=== PATIENT | female | born 1965 | race Caucasian/White ===

== ENCOUNTER 2025-04-02 17:22 | Emergency (ER) | payer OTHER, SELFPAY ==
[2025-04-02 17:26] VITALS: BP 122/76
[2025-04-02 17:58] LABS: Hematocrit 41.0 % (37.0-47.0); Hemoglobin 13.8 g/dL (12.0-16.0); Mean Corp Hgb Conc. 33.7 g/dL (33.0-37.0); Mean Corpuscular Volume 89.5 fL (81.0-99.0); Nucleated Red Blood Cells % 0 %; Platelet Count 312 10^3/uL (130-400); Red Cell Dist. Width 12.8 % (11.5-14.5)
[2025-04-02 18:08] LABS: ALT (SGPT) 54 U/L (0-35); AST (SGOT) 48 U/L (14-36); Albumin 4.6 g/dl (3.5-5.0); Alkaline Phosphatase 68 U/L (38-126); Blood Urea Nitrogen 16 mg/dl (7-17); Calcium 9.6 mg/dl (8.4-10.2); Carbon Dioxide 29 mmol/L (22-30); Chloride 99 mmol/L (98-107); Glucose 92 mg/dl (70-99); Potassium 4.5 mmol/L (3.5-5.1); Sodium 132 mmol/L (135-145); Total Protein 7.3 g/dl (6.3-8.2); eGFR > 60.00
[2025-04-02 18:20] LABS: Troponin I < 0.012 ng/ml
[2025-04-02 19:45] VITALS: BP 114/65
[2025-04-02 21:12] VITALS: BMI 26.6
[2025-04-02 21:22] VITALS: BP 121/73
[2025-04-02 22:00] VITALS: BP 104/69
[2025-04-02 23:00] VITALS: BP 102/70
--- NOTE | 2025-04-02 23:09 | ED.GENMED ---
History of Present Illness
General
Chief Complaint: Breathing Problem
Time Seen by Provider: 04/02/25 21:54
History of Present Illness
History of Present Illness:
59-year-old female with history of metastatic breast cancer presenting to the emergency department for shortness of breath. Patient has been following with [facility] for her cancer, started on Enhertu infusions with first infusion 3 weeks
ago. Last night particularly when patient was lying flat, had chest discomfort and shortness of breath. She called her oncologist today who told her to come to the hospital for evaluation, stating that one of the side effects of the medication is
pulmonary fibrosis. Patient denies any known cardiac history. She denies fever or cough. She denies any lower extremity edema. She denies additional acute medical complaints.
Past History
Past History
ED Past Medical History: Hypothyroidism and Other (Breast cancer)
ED Past Surgical History: Other (Colon perforation as a child, double mastectomy)
Social History
Tobacco: Non-smoker
Alcohol: Occasional
Drug: None
Personal:
Living: with family
Phy Exam
Physical Exam
Physical Exam:
General: Well-appearing, no clinical signs of dehydration, nontoxic and in no acute distress
HEENT: protecting airway
Neck: appears supple
CV: Normal heart rate, regular rhythm
Resp: No accessory muscle use, no increased work of breathing, lungs clear to auscultation bilaterally
Abd: Soft and non-distended, no tenderness to palpation, normal bowel sounds
Extremities: No deformities, no swelling
Neuro: alert, no focal neurologic deficit
: deferred
Rectal: deferred
Psych: Normal affect
Skin: Intact
Scores
Heart Failure Risk
Heart Failure Risk Score: Not Applicable
Heart Score for Chest Pain Patients
STEMI patient?: No
History: Slightly or Non-Suspicious
ECG: Normal
Age: >45 - <65 years
Risk Factors: 1 or 2 Risk Factors
Troponin: </= Normal Limit
Heart Score for Chest Pain Patients: 2
Heart Score Risk: 2.5% MACE over next 6 weeks
Course
Orders/Labs/Results
Orders:
Orders
04/02/25 17:30
ECG [Electrocardiogram (*1)] Urgent
Reason for Study: Shortness of Breath
04/02/25 17:31
EKG- Treatment ONCE
04/02/25 17:44
Complete Blood Count/With Diff Urgent
Comprehensive Metabolic Panel Urgent
Troponin I Urgent
04/03/25
CT Chest PE Study Urgent
Reason For Exam: SOB, palpitations, hx met breast ca
Abnormal Lab Results
04/02/25
17:44
Absolute Lymphs (auto) 1.1 L 10^3/uL
(1.2-3.4)
Immature Gran % 0.6 H %
(0-0.5)
Lymphocytes % 19.8 L %
(20.5-51.1)
Monocytes % 9.8 H %
(1.7-9.3)
Eosinophils % 8.3 H %
(0-6)
Sodium 132 L mmol/L
(135-145)
AST 48 H U/L
(14-36)
ALT 54 H U/L
(0-35)
04/02/25 17:44
04/02/25 17:44
Vital Signs
Initial and Last Documented VS:
Initial Vital Signs
Temp Pulse Resp BP Pulse Ox
98.2 F 60 16 122/76 98
04/02/25 17:26 04/02/25 17:26 04/02/25 17:26 04/02/25 17:26 04/02/25 17:26
Last Documented Vital Signs
Temp Pulse Resp BP Pulse Ox
98.2 F 55 16 100/67 98
04/03/25 02:53 04/03/25 02:53 04/03/25 02:53 04/03/25 02:53 04/03/25 02:53
MDM/Problems Addressed
MDM/Problems Addressed:
59-year-old female with history of metastatic breast cancer presenting for shortness of breath. Vital signs on arrival are normal.
On exam patient is resting comfortably, no acute distress, no respiratory distress. Unremarkable cardiac and pulmonary exam. Regarding patient's symptoms, EKG obtained on arrival, nonischemic with lower suspicion for ACS. Patient afebrile,
nontoxic, denies cough. Lower suspicion for pneumonia. Patient was sent in by her oncologist for primary concern for reactive chemotherapy infusion. PE is also consideration given her history of malignancy, however no present hypoxia or
tachycardia. Labs obtained prior to my assessment, normal, undetectable troponin. Low risk by heart score. Will plan for CT chest imaging
02:45 -CT of the chest without any evidence of PE or pulmonary abnormality. Patient remained stable on reassessment, no respiratory distress. Feel stable for discharge with outpatient primary care and oncologic follow-up. Return precautions
discussed the patient verbalized understanding
*Pulse Oximetry
SaO2: 98
Oxygen Mode of Delivery: Room air
Patient hypoxic: no
*EKG
Interpreted by ED Provider?: Yes
EKG Intrepretation Date: 04/02/25
EKG Intrepretation Time: 23:14
Interpretation: normal
Comparison EKG: no changes
Heart Rate: 62
Rate: normal
Rhythm: sinus
[place]: normal axis
Interval: normal interval
QRS Pattern: normal QRS
Ischemia: no ischemia
*Critical Care Note
Total Time (30-74mins, 75-104mins- exclusive of procedures): Not Applicable
ED Attending Note
-
Portions of this chart may have been created with voice recognition software.� Occasional wrong word or��sound alike� substitutions may have occurred due to the inherent limitations of voice recognition software.
Discharge Plan
Departure
Patient Disposition: Home (Routine Discharge)
Date of Disposition: 04/03/25
Time of Disposition: 02:45
Patient with high blood pressure during this ER visit?: No
Condition: Good
Discharge Problem:
Dyspnea
Instructions: Shortness of Breath (Dyspnea) (DC)
Prescriptions:
No Action
escitalopram oxalate 10 MG tablet
10 mg PO HS
tretinoin [Retin-A] 0.1 % Cream
1 applic TOPICAL HS
spironolactone 100 mg tablet
100 mg PO HS
levothyroxine 50 mcg tablet
50 mcg PO DAILY AT 0700
zolpidem 10 mg tablet
10 mg PO HS PRN (Reason: insomnia )
Estring 2 mg (7.5 mcg /24 hour) ring
1 vag ring VAGINAL Q3M
lisdexamfetamine 30 mg capsule
30 mg PO DAILYPRN PRN (Reason: concentration )
Referrals:
Taylor Hoskins DO [Family Provider, Internal Medicine]
Activity Restrictions/Additional Instructions:
You were seen in the emergency department for shortness of breath
You were found to have reassuring laboratory analysis and CT imaging of your chest. We recommend that you follow-up with your oncologist.
Please follow-up closely with your primary care physician.
Return to the emergency department for any worsening of your symptoms, or any development of chest pain, difficulty breathing, abdominal pain with persistent vomiting and inability to tolerate food or liquid by mouth (concern for dehydration),
weakness, headache or confusion, fever greater than 100.4, or any additional symptoms that are concerning to you.
Thank you for choosing [facility].
Interventions
Interventions:
*Risk Screen - Suicide Last Done: 04/02/25 21:15
*General Assessment Last Done: 04/02/25 21:15
*Neglect/Abuse Screening Last Done: 04/02/25 21:15
*ED- Fall Risk Assessment Last Done: 04/02/25 21:15
*ED COVID-19 Vaccine History Last Done: 04/02/25 21:15
*Nursing Disposition Last Done: 04/03/25 02:53
ED- Cardiac Assessment Last Done: 04/02/25 21:17
ED- Pulmonary Assessment Last Done: 04/02/25 21:17
Discharge Date and Time
Discharge Date/Time: 04/03/25 02:56
Print Language: POLISH
[2025-04-03 02:53] VITALS: BP 100/67
== END 2025-04-03 02:56 | disposition home or self-care (01) ==
LOC: EMR 17:22
PROVIDERS: Emergency Medicine; EMERGENCY PHYSICIAN Student in an Organized Health Care Education/Training Program; FAMILY PHYSICIAN Internal Medicine
DX: R06.00 Dyspnea, unspecified (principal); C50.919 Malignant neoplasm of unspecified site of unspecified female breast; C79.51 Secondary malignant neoplasm of bone; E03.9 Hypothyroidism, unspecified; Z90.13 Acquired absence of bilateral breasts and nipples; Z79.60 Long term (current) use of unspecified immunomodulators and immunosuppressants
CPT/HCPCS: 99284; 71275; 80053; 84484; 85025; 93005; Q9967